=== PATIENT | female | born 1980 | race Caucasian/White ===

== ENCOUNTER 2016-11-12 18:13 | Emergency (ER) | payer SELFPAY ==
--- NOTE | 2016-11-12 18:53 | ERRECORD ---
[facility] EMERGENCY RECORD HPI GENERAL (18:47 LLDO) CHIEF COMPLAINT: Patient presents for evaluation of pt was escorted to the ed by the police who lingered long enough to make sure pt was signed into the ed. pt allegedly had another seizure in the ed waiting room. when she got to a room she absolutely refused any iv or blood work. then she insisted on being immediately moved "to a bigger hospital." also refused any evaluation or treatment from this facility because she "doesn't trust [facility] insisted on leaving [facility]. HISTORIAN: pt did say she hadn't taken her Dilantin in 3 days. ROS (18:55 LLDO) CONSTITUTIONAL: no ros. NOTES: Systems not reviewed; unable. PAST MEDICAL HISTORY MEDICAL HISTORY: Flu vaccine not up to date, Past medical history includes neurological disease, Epilepsy. (18:21 SFRE) FEMALE SURGICAL HISTORY: Surgical history of section, Date of surgery 5X. (18:21 SFRE) PSYCHIATRIC HISTORY: No previous psychiatric history. (18:21 SFRE) SOCIAL HISTORY: Patient denies alcohol use, Patient denies drug use, Patient currently uses tobacco. (18:21 SFRE) NOTES: Nursing records reviewed, Agree with nursing records, Medication list reviewed. (18:57 LLDO) KNOWN ALLERGIES No Known Drug Allergies CURRENT MEDICATIONS No recorded medications VITAL SIGNS (18:14 SFRE) VITAL SIGNS: BP: 131/70, Pulse: 109, Resp: 22, Temp: 99.0 (Tympanic), Pain: 0, O2 sat: 99 on Room Air, Time: 11/12/2016 18:14. PHYSICAL EXAM (18:56 LLDO) CONSTITUTIONAL: no pe done. pt refused to see or talk to me. PROBLEM LIST No recorded problems DIAGNOSIS (18:40 MDEB) FINAL: PRIMARY: NONE. PRESCRIPTION &a-1R&a+25V*p+0X*[id number]*c202B*c15G*c2P*p-0X&a-25V&a+1R Name: Candi Heart : 1980 F36 MedRec: [id number] AcctNum: [id number] Prepared: SatNov 12, 2016 19:05 by Interface Page [address] [facility] EMERGENCY RECORD No recorded prescriptions DISPOSITION (18:40 MDEB) PATIENT: Disposition Type: Eloped, Disposition: Left Without Being Seen, Patient left the department. Glover: AD=MD Jory, Josias AGUAYO=[place] Sage, Tanja SHEPARD=[place] Veliz, Radha &a-1R&a+25V*p+0X*[id number]*c202B*c15G*c2P*p-0X&a-25V&a+1R Name: Candi Heart : 1980 F36 MedRec: [id number] AcctNum: [id number] Prepared: SatNov 12, 2016 19:05 by Interface Page 2 of 2 pMD MTDD
--- NOTE | 2016-11-12 19:02 | PICIS ---
[facility] EMERGENCY RECORD TRIAGE (18:18 SFRE) TRIAGE NOTES: SEIZURE. (18:18 SFRE) PATIENT: NAME: Candi Heart, AGE: 36, GENDER: female, : Sun 1980, TIME OF GREET: SatNov 12, 2016 18:14, PREFERRED LANGUAGE: Bermudian, ETHNICITY: Not or , ECODE BILLING MAP: [facility], Zip Code: [address], KG WEIGHT: [phone], PHONE: , , , PERSON ID: [id number], PCP: OOT. (18:18 SFRE) COMPLAINT: SEIZURE. (18:18 SFRE) ADMISSION: URGENCY: 3 Urgent, ADMISSION SOURCE: Other, TRANSPORT: Walk-in, BED: ED -03. (18:18 SFRE) ASSESSMENT: Symptoms began 30 min ago. (18:21 SFRE) PAIN: No complaint of pain. (18:21 SFRE) IMMUNIZATIONS: Flu vaccine not up to date. (18:21 SFRE) SIRS SCORING: Heart Rate 55-109 (0), Temp range 96.8-101.1 (0), respiratory rate 12-24 (0), Mental Status altered: no (0). (18:21 SFRE) TRIAGE SCREENING: Patient denies suicidal ideation, Patient denies presence of domestic violence. (18:21 SFRE) PROVIDERS: TRIAGE NURSE: Radha Veliz RN. (18:18 SFRE) VITAL SIGNS: BP 131/70, Pulse 109, Resp 22, Temp 99.0, (Tympanic), Pain 0, O2 Sat 99, on Room Air, Time 11/12/2016 18:14. (18:14 SFRE) KNOWN ALLERGIES No Known Drug Allergies CURRENT MEDICATIONS No recorded medications VITAL SIGNS (18:14 SFRE) VITAL SIGNS: BP: 131/70, Pulse: 109, Resp: 22, Temp: 99.0 (Tympanic), Pain: 0, O2 sat: 99 on Room Air, Time: 11/12/2016 18:14. HPI GENERAL (18:47 LLDO) CHIEF COMPLAINT: Patient presents for evaluation of pt was escorted to the ed by the police who lingered long enough to make sure pt was signed into the ed. pt allegedly had another seizure in the ed waiting room. when she got to a room she absolutely refused any iv or blood work. then she insisted on being immediately moved "to a bigger hospital." also refused any evaluation or treatment from this facility because she "doesn't trust [facility] insisted on leaving [facility]. HISTORIAN: pt did say she hadn't taken her Dilantin in 3 days. ROS (18:55 LLDO) CONSTITUTIONAL: no ros. NOTES: Systems not reviewed; unable. &a-1R&a+25V*p+0X*[id number]*c202B*c15G*c2P*p-0X&a-25V&a+1R Name: Candi Heart : 1980 F36 MedRec: [id number] AcctNum: [id number] Prepared: SatNov 12, 2016 19:05 by Interface Page 1 of 2 pMD [facility] EMERGENCY RECORD PAST MEDICAL HISTORY MEDICAL HISTORY: Flu vaccine not up to date, Past medical history includes neurological disease, Epilepsy. (18:21 SFRE) FEMALE SURGICAL HISTORY: Surgical history of section, Date of surgery 5X. (18:21 SFRE) PSYCHIATRIC HISTORY: No previous psychiatric history. (18:21 SFRE) SOCIAL HISTORY: Patient denies alcohol use, Patient denies drug use, Patient currently uses tobacco. (18:21 SFRE) NOTES: Nursing records reviewed, Agree with nursing records, Medication list reviewed. (18:57 LLDO) PHYSICAL EXAM (18:56 LLDO) CONSTITUTIONAL: no pe done. pt refused to see or talk to me. EVENTS TRANSFER: Triage to Emergency Main ED -03. (SatNov 12, 2016 18:18 SFRE) Removed from Emergency Main ED -03. (18:40 MDEB) PROBLEM LIST No recorded problems DIAGNOSIS (18:40 MDEB) FINAL: PRIMARY: NONE. DISPOSITION (18:40 MDEB) PATIENT: Disposition Type: Eloped, Disposition: Left Without Being Seen, Patient left the department. PRESCRIPTION No recorded prescriptions IMAGING (18:41 SFRE) AMA/LWBS: Image captured from scanner. *SUPPLY CHARGE SHEET: Image captured from scanner. ADMIN (18:57 LLDO) DIGITAL SIGNATURE: MD Corley Lloyd. Corley, Josias HOU. Glover: LLDO=MD Jory, Josias AGUAYO=[place] Sage, Tanja SFRE=[place] Veliz, Radha &a-1R&a+25V*p+0X*[id number]*c202B*c15G*c2P*p-0X&a-25V&a+1R Name: Candi Heart : 1980 F36 MedRec: [id number] AcctNum: [id number] Prepared: [facility] Nov 12, 2016 19:05 by Interface Page 2 of 2 pMD MTDD
== END 2016-11-12 18:35 | disposition left against medical advice (07) ==
LOC: MADERS 18:13
DX: Z53.21 Procedure and treatment not carried out due to patient leaving prior to being seen by health care provider (principal)